=== PATIENT | female | born 1975 | race African-American/Black ===

== ENCOUNTER 2018-03-17 13:26 | Emergency (ER) | payer MEDICARE, MEDICAID ==
[2018-03-17 14:04] LABS: Hemoglobin 9.6 g/dL (12.0-16.0); Mean Corpuscular HGB CONC 31.8 g/dL (32.0-36.0); Mean Corpuscular Hemoglobin 23.3 pg (27.0-31.0); Mean Corpuscular Volume 73.2 fL (78.0-98.0); Mean Platelet Volume 10.1 fL (7.4-10.4); Platelet Count 210 thou/uL (130-400); RBC Distribution Width 15.4 % (11.5-14.5); Red Blood Cell (RBC) Count 4.13 mill/uL (4.20-5.40); White Blood Cell (WBC) Count 3.3 thou/uL (4.8-10.8)
[2018-03-17] MEDS ORDERED: Acetaminophen 500 MG TAB ONE (14:12)
[2018-03-17 14:18] LABS: BHCG - Serum Negative (NEGATIVE); Pregs Control Background? CLEAR/WHITE (CLR/WHITE); Pregs Control Bar Appear? YES (CONTROL BAR)
[2018-03-17 14:23] LABS: ALT (SGPT) 12 U/L (8-55); AST (SGOT) 17 U/L (5-34); Albumin 3.9 g/dL (3.5-5.0); Alkaline Phosphatase 73 U/L (40-150); Anion Gap 14 mmol/L (10-20); BUN (Urea Nitrogen) 7 mg/dL (7.0-18.7); Bilirubin, Total 0.3 mg/dL (0.2-1.2); Calc. Creatinine Clearance 0 mL/min (70-130); Calcium 9.5 mg/dL (7.8-10.44); Carbon Dioxide 21 mmol/L (22-29); Chloride 106 mmol/L (98-107); Estimated GFR-MDRD Greater than 90; Globulin 3.9 g/dL (2.4-3.5); Glucose 93 mg/dL (70-105); Lipase 22 U/L (8-78); Potassium 3.6 mmol/L (3.5-5.1); Protein, Total 7.8 g/dL (6.0-8.3); Sodium 137 mmol/L (136-145)
[2018-03-17 14:27] LABS: Bilirubin Negative (Negative); Blood, Urine Large (Negative); Clarity TURBID (Clear); Glucose, Urine (Dipstick) Negative (Negative); Leukocyte Moderate (Negative); Nitrite Negative (Negative); Protein, Urine (Dipstick) 300 mg/dL (Neg-Trace); Urobilinogen 0.2 mg/dL (0.2-1.0)
[2018-03-17 14:29] LABS: Bacteria/HPF Rare-Few HPF (None Seen); Hyaline Casts/LPF 0-3 HYALINE CAST LPF (0-3 Hyaline); Pathc Cast-AUWi Flag 0.25 (0-2.49); RBC/HPF GREATER THAN 50-TNTC HPF (0-3); Squamous Epithelial 0-3 HPF (0-3)
[2018-03-17 14:31] LABS: #Monocytes 0.5 thou/uL (0.11-0.59); #Neutrophils 1.8 thou/uL (1.40-6.50); %Basophils 0.6 % (0.0-1.0); %Eosinophils 0.4 % (0.0-10.0); %Lymphocytes 29.6 % (21.0-51.0); %Monocytes 13.8 % (0.0-10.0); %Neutrophils 55.6 % (42.0-75.0); Anisocytosis SLIGHT = 6-15 cells (100X) (0-5/hpf); Hypochromia SLIGHT = 6-15 cells (100X) (0-5/hpf); MDiff Complete? YES; Microcytosis SLIGHT = 6-15 cells (100X) (0-5/hpf); Ovalocytes SLIGHT = 2-5 cells (100X) (0-1/hpf); PLT Morphology Comment Appears Adequate; Tear Drops SLIGHT = 2-5 cells (100X) (0-1/hpf)
[2018-03-17] MEDS ORDERED: cefTRIAXone\\ROCEPHIN 1 GM VIAL ONE (15:32)
--- NOTE | 2018-03-17 15:41 | ULT ---
TRANSVAGINAL AND TRANSABDOMINAL PELVIC ULTRASOUND: 03/17/18 INDICATION: Pelvic pain and bleeding for two to three days. TECHNIQUE: Hilliard scale, color doppler with vascular duplex with spectral analysis was performed. COMPARISON: Prior pelvic ultrasound dated 08/10/14. CT of the abdomen and pelvis dated 08/10/14. FINDINGS: The uterus is heterogeneous in appearance with suggestion of a intramural fibroid involving the anter ior body measuring 4.4 cm. Uterus measures 7.1 x 4.2 x 4.7 cm. Endometrial stripe measured 2.3 cm. Th ere is a large mass seen within the cul-de-sac measuring 5.8 x 5.1 x 4.1 cm likely corresponding to t he previously seen mass in the cul-de-sac measuring approximately 4.5 x 3.9 cm on the comparison exam . The adnexa were not well seen. There is mild free fluid in the cul-de-sac of [place]. IMPRESSION: 1. Heterogeneous appearance of the uterus suspicious for fibroid uterus. There is a suspected 4. 4 cm fibroid seen involving the anterior uterine body. 2. Heterogeneous solid mass within the cul-de-sac is slightly enlarged from the comparison exami nation now measuring 5.8 x 5.1 x 4.1 cm. Differential considerations remain the same. Followup MR of the pelvis with and without contrast may be helpful for improved characterization. OB-JAZZ MUSICIAN consultatio n is recommended. 3. Marked thickening in the endometrial stripe of 2.3 cm can be within normal limits for a preme nopausal female. OB-JAZZ MUSICIAN consultation may be helpful for this finding. POS: BERE
[2018-03-17] MEDS ORDERED: Lidocaine 1% PF 5 ML VIAL ONE (15:42)
== END 2018-03-17 16:36 | disposition home or self-care (01) ==
LOC: ERS 13:26
DX: N39.0 Urinary tract infection, site not specified (principal); F17.210 Nicotine dependence, cigarettes, uncomplicated
CPT/HCPCS: 36415; 76856; 80053; 81003; 81015; 83690; 84703; 85025; 86140; 87077; 87086; 96372; J0696; J2001

== ENCOUNTER 2018-09-22 23:56 | Observation (INO) | payer MEDICARE, MEDICAID ==
[2018-09-23 00:50] LABS: Hemoglobin 6.9 g/dL (12.0-16.0); Hypochromia SLIGHT = 6-15 cells (100X) (0-5/hpf); Lymphocytes 49 % (21-51); MDiff Complete? YES; Mean Corpuscular HGB CONC 30.2 g/dL (32.0-36.0); Mean Corpuscular Hemoglobin 20.2 pg (27.0-31.0); Mean Corpuscular Volume 66.8 fL (78.0-98.0); Mean Platelet Volume 9.9 fL (7.4-10.4); Microcytosis SLIGHT = 6-15 cells (100X) (0-5/hpf); Monocytes 3 % (0-10); Neutrophil 48 % (42-75); Platelet Count 307 thou/uL (130-400); Platelet Morphology Comment Appears Adequate; RBC Distribution Width 17.8 % (11.5-14.5); Red Blood Cell (RBC) Count 3.43 mill/uL (4.20-5.40); White Blood Cell (WBC) Count 2.9 thou/uL (4.8-10.8)
[2018-09-23 00:51] LABS: Anion Gap 13 mmol/L (10-20); BUN (Urea Nitrogen) 7 mg/dL (7.0-18.7); Calc. Creatinine Clearance 0 mL/min (70-130); Calcium 8.9 mg/dL (7.8-10.44); Carbon Dioxide 21 mmol/L (22-29); Chloride 109 mmol/L (98-107); Estimated GFR-MDRD 76; Glucose 104 mg/dL (70-105); Potassium 3.7 mmol/L (3.5-5.1); Sodium 139 mmol/L (136-145)
[2018-09-23 01:01] LABS: Pregnancy Test - Urine (BHCG) Negative (Negative); Pregu Control Background? CLEAR/WHITE (CLR/WHITE); Pregu Control Bar Appear? YES (CONTROL BAR); Specific Gravity 1.003 (1.002-1.036)
[2018-09-23] MEDS ORDERED: Diazepam 5 MG TAB ONE (01:34)
[2018-09-23 03:18] LABS: INR-International Normal Ratio 1.1; PTT 29.5 SEC (22.9-36.1); Prothrombin Time 14.4 SEC (12.0-14.7)
[2018-09-23 05:40] LABS: Band 3 % (5-11); Elliptocytes SLIGHT = 2-5 cells (100X) (0-1/hpf); Eosinophils 1 % (0-10); Hemoglobin 7.2 g/dL (12.0-16.0); Lymphocytes 66 % (21-51); MDiff Complete? YES; Mean Corpuscular HGB CONC 31.5 g/dL (32.0-36.0); Mean Corpuscular Hemoglobin 22.3 pg (27.0-31.0); Mean Platelet Volume 10.9 fL (7.4-10.4); Microcytosis SLIGHT = 6-15 cells (100X) (0-5/hpf); Monocytes 15 % (0-10); Neutrophil 14 % (42-75); Platelet Count 253 thou/uL (130-400); Platelet Morphology Comment Appears Adequate; RBC Distribution Width 20.2 % (11.5-14.5); Red Blood Cell (RBC) Count 3.21 mill/uL (4.20-5.40); Target Cells SLIGHT = 2-5 cells (100X) (0-1/hpf); White Blood Cell (WBC) Count 2.6 thou/uL (4.8-10.8)
[2018-09-23] MEDS ORDERED: Iopamidol 370 76% 100 ML VIAL ONE ×2 (13:18→13:19)
[2018-09-23 15:14] VITALS: BMI 25.5
--- NOTE | 2018-09-23 16:10 | CT ---
PRELIMINARY REPORT/[facility]/EMERGENTY AFTER-HOURS PROCEDURE Addendum created by Juan Rod MD on 09/23/2018 3:05 AM Central Time ([place] & [place]) Findings discu ssed with ADRIENNE PECK MD at time of interpretation. Initial Report created on 09/23/2018 2:49 AM Central Time ([place] & [place]) CT Abdomen and Pelvis With Contrast EXAM DATE/TIME: 09/23/2018 2:09 AM CLINICAL HISTORY: 43 years old, female; Pain; Abdominal pain; Localized; Lower; Prior surgery; Patient HX: Er 3; PT rep orts suprapubic pain and vaginal bleeding, PT reports she started menstruating on 09/19/18 but her per iods never last this long. Denies n/v/d, denies fever, denies any other complaints. PT states her pain feels like normal menstrual cramps, states she just wants to get checked out because her period is lasting longer than usual with heaver bleeding. Surgical history of section TECHNIQUE: Axial computed tomography images of the abdomen and pelvis with intravenous contrast. Coronal reformatted images were created and reviewed. COMPARISON: No relevant prior studies available. FINDINGS: Lower thorax: No acute findings. ABDOMEN: Liver: Hepatic hemangioma. Liver otherwise unremarkable. Gallbladder and bile ducts: Cholelithiasis. No cholecystitis or biliary ductal dilatation. Pancreas: Normal. No ductal dilation. Spleen: Normal. No splenomegaly. Adrenals: Normal. No mass. Kidneys and ureters: Left renal cyst. 1.2 cm exophytic low attenuation lesion of the left kidney does not meet strict CT criteria for a cyst and is indeterminate, potentially a hyperdense cyst. Stomach and bowel: Normal. No obstruction. No mucosal thickening. Appendix: Normal appendix. PELVIS: Bladder: Unremarkable as visualized. Reproductive: Multiple large uterine fibroids including a pedunculated posterior 6.5 cm fibroid. ABDOMEN and PELVIS: Intraperitoneal space: Normal. No free air. No significant fluid collection. Bones/joints: No acute fracture. No dislocation. Soft tissues: Unremarkable. Vasculature: Normal. No abdominal aortic aneurysm. Lymph nodes: Normal. No enlarged lymph nodes. IMPRESSION: 1. Multiple large uterine fibroids including a pedunculated posterior 6.5 cm fibroid. 2. 1.2 cm exophytic low attenuation lesion of the left kidney does not meet strict CT criteria for a cyst and is indeterminate, potentially a hyperdense cyst. Thank you for allowing us to participate in the care of your patient. Dictated and Authenticated by: Juan Rod MD 09/23/2018 2:49 AM Central Time ([place] & [place]) FINAL REPORT EMERGENCY AFTER HOURS STUDY CT ABDOMEN WITH CONTRAST CT PELVIS WITH CONTRAST: DATE: 09/23/2018. TIME: 2:10 a.m. HISTORY: A 43-year-old female with suprapubic pelvic pain and vaginal bleeding. COMPARISON: None. TECHNIQUE: IV injection of iodinated contrast media: Isovue. Oral contrast media: Not administered. FINDINGS: This report agrees with preliminary report by [email or web address]. IMPRESSION: 1. Large retroureterine solid intrapelvic mass is probably a large pedunculated uterine leiomyoma (f ibroid). 2. At least 1 additional intrauterine centrally located mass, probably another fibroid (leiomyoma). 3. Small amount of free fluid in the cul-de-sac. 4. At least 3 lesions in the left kidney. Two of them are cysts. One of them is indeterminate. Re commend follow up multiphase CT of abdomen with and without contrast (renal mass protocol) in 6 month s. 5. Cholelithiasis without evidence of acute cholecystitis. 6. Hepatic hemangioma. AMAURY Beltran POS: BERE
--- NOTE | 2018-09-23 18:48 | ULT ---
PELVIC SONOGRAM TRANSABDOMINAL AND TRANSVAGINAL IMAGING WITH DUPLEX EVALUATION: History: Pain and pelvic bleeding. Abnormal CT scan. FINDINGS: Urinary bladder is incompletely distended. Uterus has a very heterogeneous echotexture and measures up to 10.2 cm. Multiple heterogeneous hypoec hoic masses arising from the uterine myometrium correlate with fibroid seen on recent CT scan. A larg e pedunculated fibroid projecting posteriorly measures up to 5.5 mm on this exam. Endometrium is distorted and thickened up to 2.2 cm. Small amount of free fluid within the dependent portion of the pelvis. Right ovary is 3.0 cm and left is 3.2 cm. Each has a normal appearance with good color and spectral d oppler flow. IMPRESSION: Severe fibroid involvement of the uterus. POS: BERE
[2018-09-23] MEDS: Sodium Chloride 0.45% 1,000 ML IV SCH (21:20)
[2018-09-24 01:38] LABS: #Lymphocytes 1.7 thou/uL (1.20-3.40); #Monocytes 0.4 thou/uL (0.11-0.59); %Basophils 1.1 % (0.0-1.0); %Eosinophils 1.1 % (0.0-10.0); %Lymphocytes 40.7 % (21.0-51.0); %Monocytes 8.7 % (0.0-10.0); %Neutrophils 48.5 % (42.0-75.0); Hemoglobin 8.7 g/dL (12.0-16.0); Mean Corpuscular HGB CONC 31.9 g/dL (32.0-36.0); Mean Corpuscular Hemoglobin 23.6 pg (27.0-31.0); Mean Corpuscular Volume 74.1 fL (78.0-98.0); Mean Platelet Volume 10.2 fL (7.4-10.4); Platelet Count 216 thou/uL (130-400); RBC Distribution Width 21.8 % (11.5-14.5); Red Blood Cell (RBC) Count 3.69 mill/uL (4.20-5.40); White Blood Cell (WBC) Count 4.1 thou/uL (4.8-10.8)
[2018-09-24] MEDS: Sodium Chloride 0.45% 1,000 ML IV SCH (03:05)
--- NOTE | 2018-09-24 07:37 | HP ---
CHIEF COMPLAINT: Abdominal pain and vaginal bleeding. HISTORY OF PRESENT ILLNESS: Ms. Henao is a 43-year-old -French female with a history of fibroid, started having heavy periods just few days ago. She stated the bleeding was heavier than usual and had blood clots and also having lower abdominal pain. The bleeding started about four days ago. The patient has regular periods, but they are heavy usually, but this time the bleeding is more heavier. The patient did not have any fever. No nausea or vomiting. No frequency of urination or burning on urination. The patient was evaluated in the ER, found to have severe anemia with hemoglobin of 6.9. The patient also has been feeling very weak, but no dizziness. The patient was transfused 1 unit of blood. She had CAT scan done of abdomen, but it is still not reported. PAST MEDICAL HISTORY: Nothing significant passively status post . CURRENT MEDICATIONS: None. FAMILY HISTORY: Nothing contributory. SOCIAL HISTORY: The patient lives with family. No history of smoking. No history of alcohol use. REVIEW OF SYSTEMS: Unremarkable except for vaginal bleeding and abdominal pain. PHYSICAL EXAMINATION: GENERAL: The patient is alert, awake, and oriented x3. VITAL SIGNS: Temperature 98, pulse 110, respiratory rate 20, blood pressure 135 /78. HEENT: Head is normocephalic, atraumatic. Pupils are equal and reactive. Nasopharynx is pale and dry. Hard and soft palate, no lesions. SKIN: Turgor decreased. NECK: Supple. No JVD. LUNGS: Bilateral air entry. No rales. No rhonchi. HEART: S1 and S2 regular. ABDOMEN: Soft and tenderness to the suprapubic area as well as both lower quadrants. No guarding, no rigidity. Bowel sounds present. RECTAL: Deferred. CENTRAL NERVOUS SYSTEM: No focal deficits. LABORATORY DATA: CBC shows WBC 2.9, hemoglobin 6.9, hematocrit 23, platelets 307. Prothrombin time 14, INR 1. Metabolic panel; sodium 139, potassium 3.7, chloride 109, CO2 of 21, BUN 7, creatinine 0.9, glucose 104. Urine test negative. IMAGING STUDIES: CT of the abdomen and pelvis report pending. ASSESSMENT: 1. Symptomatic anemia, severe. 2. Vaginal bleeding, possibly due to fibroid uterus. 3. Leukopenia. 4. Abdominal pain. PLAN: 1. Vital signs q.4. 2. Activity: As tolerated. 3. Allergies: NKDA. 4. Hep-Lock. 5. diet, regular.. 6. We will get pelvic ultrasound. 7. We will repeat CBC in the morning. Job ID: [id number] MTDD
[2018-09-24] MEDS: medroxyPROGESTERone Acetate 5 MG TAB PO SCH ×2 (12:39→20:40)
--- NOTE | 2018-09-24 13:07 | CON ---
DATE OF CONSULTATION: 09/24/2018 CONSULTING PHYSICIAN: Se Brown MD, for [facility]. REASON FOR CONSULTATION: Abnormal uterine bleeding with anemia. HISTORY OF PRESENT ILLNESS: Ms. Henao is a 43-year-old 1, para 1, status post x1 with a negative UCG, who presented to the emergency room yesterday with a history of one month of menorrhagia. She complained of dizziness, weakness, and chest pain. She was found to have a pulse between 100 and 120 with hematocrit of 22.9% and a hemoglobin of 6.9. EKG was within normal limits. She was admitted by Dr. Frank and transfused 1 unit of PRBCs. The patient reports that her bleeding is decreased while on the floor. Repeat hemoglobin is 8.7 at 0120 hours this morning with hematocrit of 27.3%. WATCHSTANDER HISTORY: x1. Unknown last date of Pap smear. Denies history of STDs. No contraceptives at this time. PAST MEDICAL HISTORY: Denies. PAST SURGICAL HISTORY: C-sections. MEDICATIONS: Prior to admission, none. ALLERGIES: DENIES. SOCIAL HISTORY: The patient is fully disabled dual eligible. She is unable to explain to me why she is fully disabled. The patient smokes two packs per day. She denies alcohol or IV drug abuse. FAMILY HISTORY: Contributory only for a stroke in the patient's mother in her 60s. PHYSICAL EXAMINATION: VITAL SIGNS: Temperature 97.6, pulse 82, currently respirations 16, pulse ox 97, blood pressure 115/83. HEENT: Within normal limits. ABDOMEN: Abdominal survey is unremarkable with a previous vertical low abdominal incision from her . She had no rebound or guarding. She had scant menses. PELVIC: Deferred. EXTREMITIES: Without clubbing, cyanosis, or edema. LABORATORY DATA: The patient was admitted with a white count of 2.9, is currently 4.1 reviewing back on the patient's previous admissions, she has had a low WBC throughout all of these. RBC indices on admission were microcytic. Admitting hematocrit was 22.9%, currently 27.3%. Platelet count was within normal limits. PT, INR, and APTT were within normal limits. Basic metabolic panel was unremarkable. HCG was negative. Urinalysis was consistent with heavy menses, clean-catch specimen. RADIOLOGICAL STUDIES: Revealed an enlarged uterus that was also noted on ultrasound this past February. Greatest diameter was 10.2 cm. The patient had a 4 to 5 cm pedunculated posterior fibroid. The patient's endometrium was thickened at 2.2 cm, which is consistent with the endometrial thickness noted in past February. Adnexa within normal limits. CT scan confirm the pelvic ultrasound findings. The patient also was noted to have an indeterminate lesion on the left kidney, cholelithiasis, and hepatic hemangioma that the CT report, the CT over-read does not quantify in size. IMPRESSION: 1. Abnormal uterine bleeding. Etiologies likely are complicated by the patient's leiomyoma uteri. Unable to ascertain if the bleeding is due to disordered proliferative endometrium, endometrial hyperplasia, or malignancy. Bleeding seems to be decreased at this time. 2. Leiomyoma uteri. The patient has multiple fibroids including both intramural and subserosal pedunculated leiomyoma. The patient does not desire future fertility. Adnexa are within normal limits. 3. Anemia. The patient has microcytic indices consistent with chronic blood loss, likely due to persistent heavy menses as well as this episode of menorrhagia. 4. Neutropenia. This is likely due to benign condition, but no HIV noted in the chart. Noting the differential on her CBC, other etiologies seem unlikely. 5. Tobacco abuse. PLAN: 1. Initiate Provera 20 mg b.i.d. for two days, then decrease to 10 mg b.i.d. on discharge. 2. Administer iron sucrose 500 mg IV x2, as the patient seems unlikely to be compliant with oral iron therapy upon discharge. 3. The patient would be seen at [facility] [place] for followup with endometrial biopsy and Pap smear. 4. We will schedule the patient for hysterectomy with bilateral salpingectomy, open technique due to multiple fibroids, menorrhagia, and previous abdominal surgery. The patient will need to sign Medicare and Medicaid hysterectomy consents and wait 30 days for procedure per state requirements. Anticipate discharge home on 09/25/2018. Job ID: [id number]
[2018-09-24] MEDS: Iron, Sodium Ferric Gluconate 250 MG in Sodium Chloride 0.9% 250 ML 250 ML IVPB SCH (13:11)
[2018-09-24] MEDS ORDERED: Iron Sucrose Complex 500 MG in Sodium Chloride 0.9% 250 ML 250 ML IVPB SCH (14:00)
[2018-09-25] MEDS: Iron, Sodium Ferric Gluconate 250 MG in Sodium Chloride 0.9% 250 ML 250 ML IVPB SCH (01:06)
--- NOTE | 2018-09-25 07:08 | PRG ---
DATE OF SERVICE: 09/25/2018 TIME OF SERVICE: 0645 hours. SUBJECTIVE: Ms. Henao is resting comfortably. She reports that her bleeding has decreased as she only has a slight brown discharge stat now. She denies significant abdominal pain. OBJECTIVE: VITAL SIGNS: Pulse 87, respirations 13, temperature 98.1, O2 sats 97%, and blood pressure 117/80. ABDOMEN: Soft and nontender without rebound or guarding. Perineum reveals slight brownish discharge. No passage of clots. EXTREMITIES: No clubbing, cyanosis, or edema. LABORATORY DATA: No repeat hematocrit is noted. HIV is pending. IMPRESSION: Abnormal uterine bleeding, likely related to fibroids, responding well to progestational therapy, Provera at 20 mg b.i.d. PLAN: 1. Discharge home on Provera 10 mg p.o. b.i.d. x30 days. 2. Follow up with [facility] [place] with Dr. Brown within next month for exam, Pap smear, endometrial biopsy. The patient will likely need a total abdominal hysterectomy for definitive surgical management. Job ID: [id number]
[2018-09-25 08:14] VITALS: BP 132/86; TEMP 98
[2018-09-25] MEDS: medroxyPROGESTERone Acetate 5 MG TAB PO SCH (08:43)
[2018-09-25 09:32] LABS: #Lymphocytes 1.3 thou/uL (1.20-3.40); #Monocytes 0.3 thou/uL (0.11-0.59); #Neutrophils 3.3 thou/uL (1.40-6.50); %Basophils 0.3 % (0.0-1.0); %Eosinophils 0.8 % (0.0-10.0); %Lymphocytes 26.5 % (21.0-51.0); %Monocytes 6.7 % (0.0-10.0); %Neutrophils 65.7 % (42.0-75.0)
[2018-09-25 09:34] LABS: Hemoglobin 9.7 g/dL (12.0-16.0); Mean Corpuscular HGB CONC 30.3 g/dL (32.0-36.0); Mean Corpuscular Hemoglobin 22.4 pg (27.0-31.0); Mean Corpuscular Volume 74.1 fL (78.0-98.0); Mean Platelet Volume 10.6 fL (7.4-10.4); Platelet Count 265 thou/uL (130-400); Red Blood Cell (RBC) Count 4.34 mill/uL (4.20-5.40); White Blood Cell (WBC) Count 5.1 thou/uL (4.8-10.8)
[2018-09-25 09:46] LABS: Hypochromia MODERATE=16-30 cells (100X) (0-5/hpf); MDiff Complete? YES; Microcytosis SLIGHT = 6-15 cells (100X) (0-5/hpf); Ovalocytes SLIGHT = 2-5 cells (100X) (0-1/hpf); Platelet Morphology Comment Appears Adequate; Polychromasia SLIGHT = 2-3 cells (100X) (0-2/hpf)
[2018-09-25 15:25] LABS: HIV (1/2) Antibody/Antigen Non-Reactive (NonReactive); HIV 1/2 INDEX 0.11 S/CO (<1.00)
--- NOTE | 2018-09-27 02:18 | DIS ---
DATE OF ADMISSION: 09/23/2018 DATE OF DISCHARGE: 09/25/2018 ADMITTING DIAGNOSES: 1. Symptomatic anemia, severe. 2. Abnormal vaginal bleeding possibly due to fibroid uterus. 3. Leukopenia. 4. Abdominal pain. FINAL DIAGNOSES: 1. Symptomatic anemia, severe status post transfusion. 2. Abnormal uterine bleeding, possibly due to fibroid, responded to progesterone. 3. Abdominal pain, resolved. 4. Leukopenia, improved. BRIEF SUMMARY OF HOSPITAL COURSE: Ms. Henao is a 43-year-old female admitted because of abnormal vaginal bleeding and feeling weak. The patient was found to be severely anemic with a hemoglobin of 6.9. The patient was transfused with 1 unit. Hemoglobin went up to 7.2. The patient was still feeling weak and may have symptomatic anemia. She was transfused one more unit and hemoglobin came up to 8.7. The patient's abdominal pain resolved in the next couple of days. The patient was seen by PBX TECHNICIAN specialist for her abnormal uterine bleeding. Distribution Designer felt the patient possibly has abnormal uterine bleeding secondary to uterine fibroid. She was started on Provera. So the patient is responding to Provera well. Since the anemia is improving, the patient is being discharged. PHYSICAL EXAMINATION: GENERAL: At the time of discharge, she was stable. VITAL SIGNS: Stable. LUNGS: Clear. HEART: Heart sounds regular. ABDOMEN: Soft, nontender. Bowel sounds heard. LABORATORY DATA: Her CBC on the day of discharge has improved. WBC is 5.1, hemoglobin 9.7. DISCHARGE MEDICATIONS: There are no discharge medications. FOLLOWUP: The patient will come for followup in two weeks and also she will follow with playground supervisor. Job ID: [id number]
== END 2018-09-25 11:07 | disposition home or self-care (01) ==
LOC: ERS 23:56 → ERHOLD 09-23 02:48 → 2SW 09-23 14:51
PROVIDERS: ADMIT Internal Medicine; ATTEND Internal Medicine
DX: D64.9 Anemia, unspecified (principal); N93.9 Abnormal uterine and vaginal bleeding, unspecified; R10.9 Unspecified abdominal pain; D72.819 Decreased white blood cell count, unspecified; F17.210 Nicotine dependence, cigarettes, uncomplicated; D25.1 Intramural leiomyoma of uterus; D25.2 Subserosal leiomyoma of uterus
CPT/HCPCS: 36430; 74177; 76830; 76856; 80048; 81025; 84702; 85025 ×3; 85610; 85730; 86850; 86900; 86901; 86920; 87389; 96360; 96361 ×4; 96365; 96366 ×2; 99285; G0378; P9016; 36415; J2916; J7050; Q9967

== ENCOUNTER 2023-10-19 06:05 | Emergency (ER) | payer MEDICAID, MEDICARE ==
[2023-10-19 06:52] LABS: Bacteria/HPF 4+ HPF (None Seen); Bilirubin Negative (Negative); Blood, Urine Negative (Negative); CAUTI Indications for Culture Dysuria,urgency,freq; Clarity Clear (Clear); Glucose, Urine (Dipstick) Normal (Negative); Ketone, Urine Negative (Negative); Leukocyte 500 Leu/uL (Negative); Nitrite 2+ (Negative); Protein, Urine (Dipstick) 10 mg/dL (Neg-Trace); Specific Gravity, Urine 1.031 (1.002-1.036); Urobilinogen Normal mg/dL (Less than 2); WBC/HPF Greater than 50 HPF (0-3); pH, Urine 5.5 (5.0-9.0)
[2023-10-19 06:56] LABS: Urine Culture Reflex Yes Yes
[2023-10-19] MEDS ORDERED: Ibuprofen 200 MG TAB ONE (07:36)
== END 2023-10-19 07:43 | disposition home or self-care (01) ==
LOC: ERS 06:05
DX: N10 Acute pyelonephritis (principal); F17.210 Nicotine dependence, cigarettes, uncomplicated
CPT/HCPCS: 81001; 87077; 87086; 87186; 99284

== ENCOUNTER 2023-11-04 10:44 | Inpatient (IN) | payer OTHER, MEDICAID ==
[2023-11-04 11:27] LABS: #Monocytes 0.4 thou/uL (0.11-0.59); #Neutrophils 1.6 thou/uL (1.40-6.50); %Basophils 0.6 % (0.0-1.0); %Eosinophils 0.6 % (0.0-10.0); %Monocytes 11.9 % (0.0-10.0); %Neutrophils 48.6 % (42.0-75.0); Hematocrit 41.6 % (36.0-47.0); Hemoglobin 13.2 g/dL (12.0-16.0); Mean Corpuscular HGB CONC 31.7 g/dL (32.0-36.0); Mean Corpuscular Hemoglobin 27.2 pg (27.0-31.0); Mean Corpuscular Volume 85.8 fl (78.0-98.0); Mean Platelet Volume 11.3 fL (7.4-10.4); Platelet Count 243 10x3/uL (130-400); RBC Distribution Width 13.6 % (11.5-14.5); Red Blood Cell (RBC) Count 4.85 mill/uL (4.20-5.40); White Blood Cell (WBC) Count 3.4 10x3/uL (4.8-10.8)
[2023-11-04 11:43] LABS: ALT (SGPT) 22 U/L (8-55); AST (SGOT) 21 U/L (5-34); Albumin 4.3 g/dL (3.5-5.0); Alkaline Phosphatase 88 U/L (40-110); Anion Gap 16 mmol/L (10-20); BUN (Urea Nitrogen) 12 mg/dL (7.0-18.7); Bilirubin, Total 0.3 mg/dL (0.2-1.2); Calc. Creatinine Clearance 0 mL/min (70-130); Carbon Dioxide 22 mmol/L (22-29); Chloride 107 mmol/L (98-107); Estimated GFR 83; Globulin 4.4 g/dL (2.4-3.5); Glucose 96 mg/dL (70-105); Lipase 19 U/L (8-78); Potassium 3.8 mmol/L (3.5-5.1); Protein, Total 8.7 g/dL (6.0-8.3); Sodium 141 mmol/L (136-145)
[2023-11-04] MEDS ORDERED: Ketorolac Tromethamine 30 MG (1 mL) VIAL ONE (11:50)
[2023-11-04 11:58] LABS: BHCG - Serum Negative (NEGATIVE); Pregs Control Background? CLEAR/WHITE (CLR/WHITE); Pregs Control Bar Appear? YES (CONTROL BAR)
[2023-11-04] MEDS ORDERED: Morphine 4 MG/ML VIAL ONE (12:24)
[2023-11-04] MEDS ORDERED: Iopamidol-370 76% 500 ML MDV (1 ML CHARGE) ONE (13:30)
[2023-11-04] MEDS ORDERED: Dexamethasone 10 MG/ML VIAL ONE (14:26)
[2023-11-04] MEDS ORDERED: Diazepam 5 MG TAB PO PRN (14:41)
[2023-11-04] MEDS ORDERED: Bisacodyl 10 MG SUPP PR PRN (14:51)
[2023-11-04] MEDS ORDERED: Bisacodyl 5 MG TAB PO PRN (14:51)
[2023-11-04] MEDS ORDERED: Guaifenesin DM 100-10/5 ML UDCUP PO PRN (14:51)
[2023-11-04] MEDS ORDERED: Ondansetron PF 4 MG/2 ML Vial IVP PRN (14:51)
[2023-11-04] MEDS ORDERED: Senokot S 8.6-50 MG TAB PO PRN (14:51)
[2023-11-04] MEDS ORDERED: Ondansetron ODT 4 MG TAB PO PRN (14:51)
[2023-11-04 16:21] VITALS: BMI 28.5
[2023-11-04] MEDS: HYDROcodone/Acetaminophen 7.5/325 mg Tablet PO PRN (17:07)
[2023-11-04] MEDS: Sodium Chloride 0.9% 1,000 ML IV SCH (17:10)
[2023-11-04] MEDS: Morphine 2 MG/ML VIAL SLOW IVP PRN (18:32)
[2023-11-05 04:19] LABS: #Neutrophils 2.2 thou/uL (1.40-6.50); %Lymphocytes 18.6 % (21.0-51.0); %Monocytes 1.4 % (0.0-10.0); Hematocrit 37.2 % (36.0-47.0); Hemoglobin 11.6 g/dL (12.0-16.0); Mean Corpuscular HGB CONC 31.2 g/dL (32.0-36.0); Mean Corpuscular Hemoglobin 27.2 pg (27.0-31.0); Mean Corpuscular Volume 87.1 fl (78.0-98.0); Mean Platelet Volume 11.6 fL (7.4-10.4); Platelet Count 193 10x3/uL (130-400); RBC Distribution Width 13.5 % (11.5-14.5); Red Blood Cell (RBC) Count 4.27 mill/uL (4.20-5.40); White Blood Cell (WBC) Count 2.8 10x3/uL (4.8-10.8)
[2023-11-05 04:53] LABS: ALT (SGPT) 18 U/L (8-55); AST (SGOT) 17 U/L (5-34); Albumin 3.7 g/dL (3.5-5.0); Alkaline Phosphatase 74 U/L (40-110); Anion Gap 12 mmol/L (10-20); BUN (Urea Nitrogen) 12 mg/dL (7.0-18.7); Bilirubin, Total 0.2 mg/dL (0.2-1.2); Calc. Creatinine Clearance 95 mL/min (70-130); Calcium 8.7 mg/dL (7.8-10.44); Carbon Dioxide 20 mmol/L (22-29); Chloride 109 mmol/L (98-107); Estimated GFR 94; Globulin 3.6 g/dL (2.4-3.5); Glucose 146 mg/dL (70-105); Potassium 4.3 mmol/L (3.5-5.1); Protein, Total 7.3 g/dL (6.0-8.3); Sodium 137 mmol/L (136-145)
[2023-11-05] MEDS: Enoxaparin 40 MG (0.4 mL) SYRINGE SC SCH (08:08)
[2023-11-05 18:03] LABS: Immunoglob - G (Total IgG) 2216 mg/dL (552-1631)
[2023-11-05 18:04] LABS: Immunoglob - A (Total IgA) 91 mg/dL (65-421); Immunoglob - M (Total IgM) 108 mg/dL (33-293)
[2023-11-05] MEDS: Senokot S 8.6-50 MG TAB PO SCH (20:23)
[2023-11-05] MEDS: Acetaminophen 325 MG TAB PO PRN (20:24)
[2023-11-06] MEDS: Polyethylene Glycol 3350 17 GM Packet PO SCH (09:46)
[2023-11-06] MEDS: fentaNYL 25 mcg Patch TD SCH (12:48)
[2023-11-06] MEDS: Morphine 4 MG/ML VIAL SLOW IVP PRN (21:28)
[2023-11-06] MEDS: Dexamethasone 4 MG TAB PO SCH (21:29)
[2023-11-07] MEDS: Gabapentin 300 MG CAP PO SCH (10:12)
[2023-11-07] MEDS: Dexamethasone 4 MG TAB PO SCH (11:38)
[2023-11-07] MEDS: Bisacodyl 5 MG TAB PO SCH (16:05)
[2023-11-08] MEDS: Morphine ER 15 MG TAB PO SCH ×2 (10:30→20:31)
[2023-11-08 15:18] LABS: A/G Ratio 0.8 (0.7-1.7); Alpha 1 0.2 g/dL (0.0-0.4); Alpha 2 0.8 g/dL (0.4-1.0); Beta 0.9 g/dL (0.7-1.3); Gamma 1.9 g/dL (0.4-1.8); Globulin, Total 3.8 g/dL (2.2-3.9); M-Spike Not Observed g/dL (Not Observed); Protein Electrophoresis Intrp Note: (.)
[2023-11-09] MEDS ORDERED: hydrALAZINE 20 MG/ML VIAL SLOW IVP PRN (07:43)
[2023-11-09] MEDS: Amlodipine 5 MG TAB PO SCH (08:43)
[2023-11-09 08:46] VITALS: BP 136/99
[2023-11-09 09:14] VITALS: TEMP 97.7
== END 2023-11-09 13:05 | disposition home or self-care (01) | DRG 543 ==
LOC: ERS 10:44 → MSONC 16:00
PROVIDERS: ADMIT Internal Medicine; ATTEND Family Medicine
DX: C79.51 Secondary malignant neoplasm of bone (principal); M84.48XA Pathological fracture, other site, initial encounter for fracture; N39.0 Urinary tract infection, site not specified; N63.20 Unspecified lump in the left breast, unspecified quadrant; C50.919 Malignant neoplasm of unspecified site of unspecified female breast; F17.210 Nicotine dependence, cigarettes, uncomplicated; K80.20 Calculus of gallbladder without cholecystitis without obstruction; D18.03 Hemangioma of intra-abdominal structures; Z90.710 Acquired absence of both cervix and uterus; Z98.891 History of uterine scar from previous surgery; Z82.49 Family history of ischemic heart disease and other diseases of the circulatory system
CPT/HCPCS: 36415; 71260; 72157; 74176; 74177; 80053; 83690; 84155; 84165; 84703; 85025; 86140; 86300; 96374; 96375; J1100; J1650; J1885; J2270; J2272; J7050; J8540; Q9967

== ENCOUNTER 2023-11-17 10:25 | Outpatient (CLI) | payer OTHER, MEDICAID | END 2023-11-17 10:26 | disposition home or self-care (01) | LOC: BICMAMMO 10:25 | PROVIDERS: ATTEND Specialist | DX: N63.21 Unspecified lump in the left breast, upper outer quadrant (principal) | CPT/HCPCS: 76642; 77066; G0279 ==

== ENCOUNTER 2024-02-08 09:20 | Day surgery (SDC) | payer OTHER, MEDICAID ==
[2024-02-07 14:30] VITALS: BMI 26.9
[2024-02-08] MEDS ORDERED: Acetaminophen 500 MG TAB ONE (11:27)
[2024-02-08] MEDS ORDERED: Lidocaine 1% MPF 2 ML VIAL ONE (11:27)
[2024-02-08] MEDS ORDERED: CEFAZOLIN 2 GM VIAL ONE (11:28)
[2024-02-08] MEDS ORDERED: Sodium Chloride 0.9% 100 ML ONE (11:28)
[2024-02-08 11:55] LABS: #Basophils Less than 0.03 10x3/uL (0.0-0.2); #Eosinphils Less than 0.03 10x3/uL (0.0-0.7); %Basophils 0.6 % (0.0-1.0); %Eosinophils 0.6 % (0.0-10.0); %Monocytes 7.8 % (0.0-10.0); %Neutrophils 63.7 % (42.0-75.0); Hematocrit 32.3 % (36.0-47.0); Hemoglobin 10.4 g/dL (12.0-16.0); Mean Corpuscular HGB CONC 32.2 g/dL (32.0-36.0); Mean Corpuscular Volume 87.1 fL (78.0-98.0); Mean Platelet Volume 11.5 fL (7.4-10.4); Platelet Count 156 10x3/uL (130-400); Red Blood Cell (RBC) Count 3.71 mill/uL (4.20-5.40)
[2024-02-08] MEDS ORDERED: EPINEPHrine 1 MG/ML VIAL ONE (12:01)
[2024-02-08] MEDS ORDERED: Lidocaine 1% PF 5 ML VIAL ONE (12:02)
[2024-02-08] MEDS ORDERED: Bupivacaine 0.25% HCL 30 ML VIAL ONE (12:02)
[2024-02-08] MEDS ORDERED: Ketorolac Tromethamine 30 MG (1 mL) VIAL ONE (12:06)
[2024-02-08] MEDS ORDERED: PROPOFOL 40 ML ONE (12:21)
[2024-02-08] MEDS ORDERED: fentaNYL PF 100 MCG/2 ML SYRINGE ONE (12:21)
[2024-02-08] MEDS ORDERED: Midazolam HCl 2 mg/2 ml Vial ONE (12:21)
[2024-02-08 12:26] LABS: Anion Gap 13 mmol/L (10-20); BUN (Urea Nitrogen) 8 mg/dL (7.0-18.7); Calc. Creatinine Clearance 80 mL/min (70-130); Calcium 9.3 mg/dL (7.8-10.44); Carbon Dioxide 27 mmol/L (22-29); Chloride 107 mmol/L (98-107); Estimated GFR 78; Glucose 90 mg/dL (70-105); Potassium 3.8 mmol/L (3.5-5.1); Sodium 143 mmol/L (136-145)
[2024-02-08] MEDS ORDERED: PHENYLEPHRINE-NS 100 MCG/ML 10 ML SYRINGE ONE (12:47)
[2024-02-08] MEDS ORDERED: PROPOFOL 20 ML ONE (12:47)
== END 2024-02-08 14:05 | disposition home or self-care (01) ==
LOC: SDC 09:20
PROVIDERS: ATTEND Specialist
PROC: 05H533Z Insertion of Infusion Device into Right Subclavian Vein, Percutaneous Approach (ICD-10-PCS; principal; 2024-02-08)
DX: C50.912 Malignant neoplasm of unspecified site of left female breast (principal); C79.51 Secondary malignant neoplasm of bone
CPT/HCPCS: 36561; 71045; 80048; 85025; C1788; J0171; J0665; J1642; J1885; J2250; J2704; J3490

== ENCOUNTER 2024-02-10 12:20 | Emergency (ER) | payer OTHER, MEDICAID | END 2024-02-11 01:30 | disposition left against medical advice (07) | LOC: ERS 12:20 | DX: Z53.21 Procedure and treatment not carried out due to patient leaving prior to being seen by health care provider (principal) ==

== ENCOUNTER 2024-03-18 11:02 | Outpatient (CLI) | payer OTHER, MEDICAID ==
[2024-03-18] MEDS ORDERED: Iopamidol 370 76% 100 ML VIAL ONE (12:41)
== END 2024-03-18 11:03 | disposition home or self-care (01) ==
LOC: BICCT 11:02
PROVIDERS: ATTEND Internal Medicine Hematology & Oncology
DX: C78.7 Secondary malignant neoplasm of liver and intrahepatic bile duct (principal); C50.412 Malignant neoplasm of upper-outer quadrant of left female breast; C79.51 Secondary malignant neoplasm of bone; D18.03 Hemangioma of intra-abdominal structures; S22.071A Stable burst fracture of T9-T10 vertebra, initial encounter for closed fracture; N28.1 Cyst of kidney, acquired; N32.89 Other specified disorders of bladder; K80.20 Calculus of gallbladder without cholecystitis without obstruction; K62.89 Other specified diseases of anus and rectum; K76.89 Other specified diseases of liver; M53.9 Dorsopathy, unspecified; Z90.710 Acquired absence of both cervix and uterus; X58.XXXA Exposure to other specified factors, initial encounter
CPT/HCPCS: 74177; 82565; Q9967

== ENCOUNTER 2024-07-31 09:30 | Outpatient (CLI) | payer OTHER | END 2024-07-31 09:31 | disposition home or self-care (01) | LOC: PET 09:30 | PROVIDERS: ATTEND Internal Medicine Hematology & Oncology | DX: C50.412 Malignant neoplasm of upper-outer quadrant of left female breast (principal); C79.51 Secondary malignant neoplasm of bone | CPT/HCPCS: 78815; A9552 ==

== ENCOUNTER 2025-05-30 11:42 | Outpatient (CLI) | payer OTHER ==
[2025-05-30] MEDS ORDERED: Iopamidol 370 76% 100 ML VIAL ONE (13:51)
== END 2025-05-30 11:43 | disposition home or self-care (01) ==
LOC: MRI 11:42
PROVIDERS: ATTEND Internal Medicine Hematology & Oncology
DX: C50.412 Malignant neoplasm of upper-outer quadrant of left female breast (principal); C79.51 Secondary malignant neoplasm of bone; R10.9 Unspecified abdominal pain; K52.9 Noninfective gastroenteritis and colitis, unspecified; K80.20 Calculus of gallbladder without cholecystitis without obstruction; N28.89 Other specified disorders of kidney and ureter; S22.071D Stable burst fracture of T9-T10 vertebra, subsequent encounter for fracture with routine healing; N13.30 Unspecified hydronephrosis; K56.41 Fecal impaction
CPT/HCPCS: 72146; 72157; 74177; Q9967